=== PATIENT | female | born 1990 | race American Indian/Alaskan Native ===

== ENCOUNTER 2016-12-13 13:57 | Emergency (ER) | payer MEDICAID, OTHER ==
[2016-12-13 14:34] VITALS: BP 128/76
--- NOTE | 2016-12-13 16:32 | Emergency Department Report ---
ED General Adult HPI - General Chief complaint: Eye Problems Stated complaint: EYE RED/IRRIATION Time Seen by Provider: 12/13/16 15:51 Source: patient Mode of arrival: Ambulatory Limitations: No Limitations - History of Present Illness Initial comments: Mother comes into the ER today with complaints of left eye pain for the past 2 days. Patient states that her child poked her in her left eye 2 days ago and since then it has become more red and more painful. Patient states that this morning upon waking up she noticed that she had some discharge coming out of her left eye as well. Patient denies any visual changes. Patient states that it feels like something is in her eye every time she blinks. Patient further notes that she has been having some mild sinus congestion for the past few days as well. Patient denies any fever, body aches, chills. - Related Data Previous Rx's Medication Instructions Recorded Last Taken Type HYDROcodone/APAP 10-325 [[place] 1 each PO Q8HR PRN #15 tablet 07/16/13 Unknown Rx 10-325 mg TAB] Sulfamethoxazole/Trimethoprim 1 each PO BID 3 Days 07/16/13 Unknown Rx [Bactrim Ds] metroNIDAZOLE [Flagyl] 500 mg PO BID #20 tablet 05/24/14 Unknown Rx Doxycycline [Vibramycin CAP] 100 mg PO Q12HR #20 capsule 07/28/15 Unknown Rx HYDROcodone/APAP 5-325 [[place] 1 each PO Q6HR PRN #10 tablet 07/28/15 Unknown Rx 5-325 mg TAB] Ibuprofen [Motrin 800 MG tab] 800 mg PO TID PRN #45 tablet 07/28/15 Unknown Rx metroNIDAZOLE [Flagyl] 500 mg PO Q12HR #20 tab 07/28/15 Unknown Rx Amoxicillin 500 mg PO TID #30 capsule 12/13/16 Unknown Rx Polymyxin B Sulf/Trimethoprim 2 drop OP QID #10 ml 12/13/16 Unknown Rx [Polytrim Eye Drops 37081uwoly/0.1%] Allergies Allergy/AdvReac Type Severity Reaction Status Date / Time No Known Allergies Allergy Verified 07/15/13 22:51 ED Review of Systems ROS: Stated complaint: EYE RED/IRRIATION Other details as noted in HPI Constitutional: denies: chills, fever Eyes: eye pain (left eye), eye discharge. denies: vision change ENT: congestion. denies: ear pain, throat pain Respiratory: denies: cough, shortness of breath, wheezing Cardiovascular: denies: chest pain, palpitations Endocrine: no symptoms reported Gastrointestinal: denies: abdominal pain, nausea, diarrhea Genitourinary: denies: urgency, dysuria, discharge Musculoskeletal: denies: back pain, joint swelling, arthralgia Skin: denies: rash, lesions Neurological: denies: headache, weakness, paresthesias Psychiatric: denies: anxiety, depression Hematological/Lymphatic: denies: easy bleeding, easy bruising ED Past Medical Hx - Past Medical History Previous Medical History?: No Additional medical history: chronic back pain - Surgical History Past Surgical History?: No - Social History Smoking Status: Never Smoker Substance Use Type: None - Medications Home Medications: Home Medications Medication Instructions Recorded Confirmed Last Taken Type HYDROcodone/APAP 10-325 [[place] 1 each PO Q8HR PRN #15 tablet 07/16/13 Unknown Rx 10-325 mg TAB] Sulfamethoxazole/Trimethoprim 1 each PO BID 3 Days 07/16/13 Unknown Rx [Bactrim Ds] metroNIDAZOLE [Flagyl] 500 mg PO BID #20 tablet 05/24/14 Unknown Rx Doxycycline [Vibramycin CAP] 100 mg PO Q12HR #20 capsule 07/28/15 Unknown Rx HYDROcodone/APAP 5-325 [[place] 1 each PO Q6HR PRN #10 tablet 07/28/15 Unknown Rx 5-325 mg TAB] Ibuprofen [Motrin 800 MG tab] 800 mg PO TID PRN #45 tablet 07/28/15 Unknown Rx metroNIDAZOLE [Flagyl] 500 mg PO Q12HR #20 tab 07/28/15 Unknown Rx Amoxicillin 500 mg PO TID #30 capsule 12/13/16 Unknown Rx Polymyxin B Sulf/Trimethoprim 2 drop OP QID #10 ml 12/13/16 Unknown Rx [Polytrim Eye Drops [id number]/0.1%] ED Physical Exam - General Limitations: No Limitations General appearance: alert, in no apparent distress - Head Head exam: Present: atraumatic, normocephalic - Eye Eye exam: Present: normal appearance, PERRL, EOMI, conjunctival injection (left eye), other (visible corneal abrasion to left lower iris region visible with ophthalmoscope. Diffuse scleral erythematous with purulent drainage noted on exam.). Absent: periorbital swelling, periorbital tenderness Pupils: Present: normal accommodation - ENT ENT exam: Present: mucous membranes moist, TM's normal bilaterally, normal external ear exam, other (bilateral nasal mucosa redness and turbinate swelling) - Neck Neck exam: Present: normal inspection, full ROM. Absent: tenderness, lymphadenopathy - Respiratory Respiratory exam: Present: normal lung sounds bilaterally. Absent: respiratory distress - Cardiovascular Cardiovascular Exam: Present: regular rate, normal rhythm. Absent: systolic murmur, diastolic murmur, rubs, gallop - GI/Abdominal GI/Abdominal exam: Present: soft, normal bowel sounds - Extremities Exam Extremities exam: Present: normal inspection - Back Exam Back exam: Present: normal inspection - Neurological Exam Neurological exam: Present: alert, oriented X3 - Psychiatric Psychiatric exam: Present: normal affect, normal mood - Skin Skin exam: Present: warm, dry, intact, normal color. Absent: rash ED Course Vital Signs 12/13/16 14:28 Temperature 98.2 F Pulse Rate 83 Respiratory 20 Rate Blood Pressure 128/76 O2 Sat by Pulse 100 Oximetry ED Medical Decision Making - Medical Decision Making Patient is nontoxic and hemodynamically stable. It appears the patient suffered a corneal abrasion from her intense finger 2 days ago and it appears to be getting infected at this time. I will start patient on medicine appropriately and give patient referral to eye doctor as needed. Patient is in agreement with treatment plan patient is stable for discharge. Critical care attestation.: If time is entered above; I have spent that time in minutes in the direct care of this critically ill patient, excluding procedure time. ED Disposition Clinical Impression: Corneal abrasion, left, Conjunctivitis, Sinusitis Disposition: TO HOME OR SELFCARE Is pt being admited?: No Does the pt Need Aspirin: No Condition: Good Instructions: Conjunctivitis (ED), Corneal Abrasion (ED), Sinusitis (ED) Prescriptions: Amoxicillin 500 mg PO TID #30 capsule Polymyxin B Sulf/Trimethoprim [Polytrim Eye Drops 51067mbjaw/0.1%] 2 drop OP QID #10 ml Referrals: PRIMARY CARE, [Primary Care Provider] - 3-5 Days [facility] [Provider Group] - as needed Time of Disposition: 16:33
== END 2016-12-13 16:44 | disposition home or self-care (01) ==
LOC: ED 13:57
DX: S05.02XA Injury of conjunctiva and corneal abrasion without foreign body, left eye, initial encounter (principal); H10.9 Unspecified conjunctivitis; J32.9 Chronic sinusitis, unspecified; G89.29 Other chronic pain; X58.XXXA Exposure to other specified factors, initial encounter; Y93.89 Activity, other specified; Y99.9 Unspecified external cause status; Y92.89 Other specified places as the place of occurrence of the external cause
CPT/HCPCS: 99282

== ENCOUNTER 2021-04-17 22:18 | Emergency (ER) | payer MEDICAID ==
[2021-04-17] MEDS ORDERED: IBUPROFEN 600 MG TAB PO ONE (23:17)
--- NOTE | 2021-04-17 23:22 | Emergency Department Report ---
ED Eye Problem HPI - General Chief complaint: Eye Problems Stated complaint: RIGHT EYE INJURY Source: patient Mode of arrival: Ambulatory Limitations: No Limitations - History of Present Illness Initial comments: Patient is a 31-year-old -[place] female with no past medical history presents to the ED with complaint of acute onset persistent right eye pain after she scratched her right eye accidentally 2 days ago. Patient states that the pain is mainly when she blinks her right eye and states that in the last 24 hours, she noticed that the right eye was extremely red with some mild discharge. Patient states that she is up-to-date with all her vaccinations including tetanus. Patient denies vision changes or vision loss, fever, chills, nausea and vomiting, headache, chest pain or shortness of breath, nasal and sinus congestion. MD chief complaint: eye pain (right eye pain; erythematous right conjunctiva s/p injury), eye redness, eye injury (right), foreign body (sensation), other (accidentally scratched right eye) -: Sudden, days(s) (2) Onset Description: sudden Location: right eye Place: home If Injury: direct trauma (scratched right eye) Eye Symptoms: burning, redness, pain, foreign body sensation Severity: moderate Severity scale (0 -10): 3 If Pain, Quality: burning, aching Consistency: constant Context: trauma, injury (scratched right eye accidentally) Associated Symptoms: none Treatments Prior to Arrival: none - Related Data Patient Tetanus UTD: Yes Previous Rx's Medication Instructions Recorded Last Taken Type HYDROcodone/APAP 10-325 [[place] 1 each PO Q8HR PRN #15 tablet 07/16/13 Unknown Rx 10-325 mg TAB] Sulfamethoxazole/Trimethoprim 1 each PO BID 3 Days tablet 07/16/13 Unknown Rx [Bactrim Ds] metroNIDAZOLE [Flagyl] 500 mg PO BID #20 tablet 05/24/14 Unknown Rx DOXYCYCLINE Hyclate [Vibramycin 100 mg PO Q12HR #20 capsule 07/28/15 Unknown Rx CAP] HYDROcodone/APAP 5-325 [[place] 1 each PO Q6HR PRN #10 tablet 07/28/15 Unknown Rx 5-325 mg TAB] Ibuprofen [Motrin 800 MG tab] 800 mg PO TID PRN #45 tablet 07/28/15 Unknown Rx metroNIDAZOLE [Flagyl] 500 mg PO Q12HR #20 tab 07/28/15 Unknown Rx Amoxicillin 500 mg PO TID #30 capsule 12/13/16 Unknown Rx Polymyxin B Sulf/Trimethoprim 2 drop OP QID #10 ml 12/13/16 Unknown Rx [Polytrim Eye Drops 95003voxle/0.1%] Ibuprofen [Motrin] 600 mg PO Q8H PRN #30 tablet 04/17/21 Unknown Rx Tobramycin 0.3% [Tobrex] 1 drop OP Q6HR #5 ml 04/17/21 Unknown Rx Allergies Allergy/AdvReac Type Severity Reaction Status Date / Time No Known Allergies Allergy Verified 07/15/13 22:51 ED Review of Systems ROS: Stated complaint: RIGHT EYE INJURY Other details as noted in HPI Constitutional: denies: chills, fever Eyes: eye pain (right eye pain with erythematous right conjunctiva), eye discharge (right). denies: vision change ENT: denies: ear pain, throat pain, dental pain, congestion Respiratory: denies: cough, shortness of breath, SOB with exertion, SOB at rest, wheezing Cardiovascular: denies: chest pain, palpitations Endocrine: no symptoms reported Gastrointestinal: denies: abdominal pain, nausea, diarrhea Genitourinary: denies: urgency, dysuria, discharge Musculoskeletal: denies: back pain, joint swelling, arthralgia Skin: denies: rash, lesions Neurological: denies: headache, weakness, paresthesias Psychiatric: denies: anxiety, depression Hematological/Lymphatic: denies: easy bleeding, easy bruising ED Past Medical Hx - Past Medical History Previous Medical History?: Yes Additional medical history: chronic back pain - Surgical History Past Surgical History?: No - Social History Smoking Status: Never Smoker Substance Use Type: None - Medications Home Medications: Home Medications Medication Instructions Recorded Confirmed Last Taken Type HYDROcodone/APAP 10-325 [[place] 1 each PO Q8HR PRN #15 tablet 07/16/13 Unknown Rx 10-325 mg TAB] Sulfamethoxazole/Trimethoprim 1 each PO BID 3 Days tablet 07/16/13 Unknown Rx [Bactrim Ds] metroNIDAZOLE [Flagyl] 500 mg PO BID #20 tablet 05/24/14 Unknown Rx DOXYCYCLINE Hyclate [Vibramycin 100 mg PO Q12HR #20 capsule 07/28/15 Unknown Rx CAP] HYDROcodone/APAP 5-325 [[place] 1 each PO Q6HR PRN #10 tablet 07/28/15 Unknown Rx 5-325 mg TAB] Ibuprofen [Motrin 800 MG tab] 800 mg PO TID PRN #45 tablet 07/28/15 Unknown Rx metroNIDAZOLE [Flagyl] 500 mg PO Q12HR #20 tab 07/28/15 Unknown Rx Amoxicillin 500 mg PO TID #30 capsule 12/13/16 Unknown Rx Polymyxin B Sulf/Trimethoprim 2 drop OP QID #10 ml 12/13/16 Unknown Rx [Polytrim Eye Drops 72624mpavc/0.1%] Ibuprofen [Motrin] 600 mg PO Q8H PRN #30 tablet 04/17/21 Unknown Rx Tobramycin 0.3% [Tobrex] 1 drop OP Q6HR #5 ml 04/17/21 Unknown Rx ED Physical Exam - General Limitations: No Limitations General appearance: alert, in no apparent distress - Head Head exam: Present: atraumatic, normocephalic, normal inspection - Eye Eye exam: Present: normal appearance, PERRL, EOMI, other (erythematous right conjunctiva with mild yellowish discharge) Pupils: Present: normal accommodation - ENT ENT exam: Present: normal exam, normal orophraynx, mucous membranes moist, TM's normal bilaterally, normal external ear exam - Neck Neck exam: Present: normal inspection, full ROM. Absent: tenderness - Respiratory Respiratory exam: Present: normal lung sounds bilaterally. Absent: respiratory distress, wheezes, rhonchi, stridor, chest wall tenderness, accessory muscle use, decreased breath sounds - Cardiovascular Cardiovascular Exam: Present: regular rate, normal rhythm, normal heart sounds. Absent: systolic murmur, diastolic murmur, rubs, gallop - GI/Abdominal GI/Abdominal exam: Present: soft, normal bowel sounds. Absent: tenderness, guarding, rebound, hyperactive bowel sounds, hypoactive bowel sounds, organomegaly - Extremities Exam Extremities exam: Present: normal inspection, full ROM, normal capillary refill - Back Exam Back exam: Present: normal inspection, full ROM. Absent: tenderness, CVA tenderness (R), CVA tenderness (L), muscle spasm, paraspinal tenderness, vertebral tenderness, rash noted - Neurological Exam Neurological exam: Present: alert, oriented X3, CN II-XII intact, normal gait, reflexes normal - Psychiatric Psychiatric exam: Present: normal affect, normal mood - Skin Skin exam: Present: warm, dry, intact, normal color. Absent: rash ED Course Vital Signs 04/17/21 22:20 Temperature 98.0 F Pulse Rate 84 Respiratory 18 Rate Blood Pressure 99/70 O2 Sat by Pulse 97 Oximetry ED Medical Decision Making - Medical Decision Making This is a 31-year-old -[place] female with no past medical history presents to the ED with complaint of acute onset persistent right eye pain after she scratched her right eye accidentally 2 days ago. Patient states that the pain is mainly when she blinks her right eye and states that in the last 24 hours, she noticed that the right eye was extremely red with some mild discharge. Patient states that she is up-to-date with all her vaccinations including tetanus. In the ED, patient is alert and oriented x3 and is not in any distress. Patient was discharged home on antibiotic eyedrops and pain medications by mouth. Patient was referred to the hand embroiderer Dr. Thee Moulton for follow-up in 3 to 5 days for reevaluation. Patient was advised return to the ED immediately if symptoms get worse. - Differential Diagnosis Corneal abrasion; conjunctival abrasion; right eye injury; conjunctivitis Critical care attestation.: If time is entered above; I have spent that time in minutes in the direct care of this critically ill patient, excluding procedure time. ED Disposition Clinical Impression: Right eye injury Qualifiers: Encounter type: initial encounter Qualified Code(s): S05.91XA - Unspecified injury of right eye and orbit, initial encounter Abrasion of right conjunctiva with infection Qualifiers: Encounter type: initial encounter Qualified Code(s): S05.01XA - Injury of conjunctiva and corneal abrasion without foreign body, right eye, initial encounter; H44.001 - Unspecified purulent endophthalmitis, right eye Disposition: HOME / SELF CARE / HOMELESS Is pt being admited?: No Does the pt Need Aspirin: No Condition: Stable Instructions: Corneal Abrasion, [id number] Additional Instructions: Apply the medication to the affected eye as advised, drink plenty of fluids, take pain medication as needed, follow-up with the hand embroiderer Dr. Marilyn Pride for further evaluation and 3 to 5 days. Return to the ED immediately if symptoms get worse. Prescriptions: Ibuprofen [Motrin] 600 mg PO Q8H PRN #30 tablet PRN Reason: Pain Tobramycin 0.3% [Tobrex] 1 drop OP Q6HR #5 ml Referrals: MARILYN PRIDE MD [Staff Physician] - 3-5 Days Time of Disposition: 23:23 Print Language: BULGARIAN
[2021-04-17 23:50] VITALS: BP 121/63
== END 2021-04-17 23:54 | disposition home or self-care (01) ==
LOC: ED 22:18
DX: S05.01XA Injury of conjunctiva and corneal abrasion without foreign body, right eye, initial encounter (principal); S05.91XA Unspecified injury of right eye and orbit, initial encounter; G89.29 Other chronic pain; X58.XXXA Exposure to other specified factors, initial encounter; Y93.89 Activity, other specified; Y92.89 Other specified places as the place of occurrence of the external cause; Y99.8 Other external cause status
CPT/HCPCS: 99282

== ENCOUNTER 2021-04-20 13:15 | Emergency (ER) | payer MEDICAID ==
[2021-04-20 13:34] VITALS: BP 129/73
[2021-04-20] MEDS ORDERED: FLUORESCEIN 1 MG STRIP OP ONE (13:36)
[2021-04-20] MEDS ORDERED: TETRACAINE 0.5% OPHTH SOLN 4ML OD ONE (13:36)
--- NOTE | 2021-04-20 14:16 | Emergency Department Report ---
ED Eye Problem HPI - General Chief complaint: Eye Problems Stated complaint: EYE PROBLEMS Time Seen by Provider: 04/20/21 13:27 Source: patient Mode of arrival: Ambulatory Limitations: No Limitations - History of Present Illness Initial comments: Patient is a 31-year-old female presents emergency room complaints of bilateral eye irritation. She states initially began in the right eye 5 days ago after rubbing her eye. She was seen in the emergency department 3 days ago and prescribed tobramycin. She states now it has spread to the left eye. She has associated drainage. She states that she has a foreign body sensation in the right eye but denies getting anything into the eye that she is aware of. She denies any contact lens use. She denies any vision changes. No allergies to medications. - Related Data Previous Rx's Medication Instructions Recorded Last Taken Type HYDROcodone/APAP 10-325 [[place] 1 each PO Q8HR PRN #15 tablet 07/16/13 Unknown Rx 10-325 mg TAB] Sulfamethoxazole/Trimethoprim 1 each PO BID 3 Days tablet 07/16/13 Unknown Rx [Bactrim Ds] metroNIDAZOLE [Flagyl] 500 mg PO BID #20 tablet 05/24/14 Unknown Rx DOXYCYCLINE Hyclate [Vibramycin 100 mg PO Q12HR #20 capsule 07/28/15 Unknown Rx CAP] HYDROcodone/APAP 5-325 [[place] 1 each PO Q6HR PRN #10 tablet 07/28/15 Unknown Rx 5-325 mg TAB] Ibuprofen [Motrin 800 MG tab] 800 mg PO TID PRN #45 tablet 07/28/15 Unknown Rx metroNIDAZOLE [Flagyl] 500 mg PO Q12HR #20 tab 07/28/15 Unknown Rx Amoxicillin 500 mg PO TID #30 capsule 12/13/16 Unknown Rx Polymyxin B Sulf/Trimethoprim 2 drop OP QID #10 ml 12/13/16 Unknown Rx [Polytrim Eye Drops 13098ythnc/0.1%] Ibuprofen [Motrin] 600 mg PO Q8H PRN #30 tablet 04/17/21 Unknown Rx Tobramycin 0.3% [Tobrex] 1 drop OP Q6HR #5 ml 04/17/21 Unknown Rx Allergies Allergy/AdvReac Type Severity Reaction Status Date / Time No Known Allergies Allergy Verified 07/15/13 22:51 ED Review of Systems ROS: Stated complaint: EYE PROBLEMS Other details as noted in HPI Comment: All other systems reviewed and negative ED Past Medical Hx - Past Medical History Additional medical history: chronic back pain - Social History Smoking Status: Never Smoker Substance Use Type: None - Medications Home Medications: Home Medications Medication Instructions Recorded Confirmed Last Taken Type HYDROcodone/APAP 10-325 [[place] 1 each PO Q8HR PRN #15 tablet 07/16/13 Unknown Rx 10-325 mg TAB] Sulfamethoxazole/Trimethoprim 1 each PO BID 3 Days tablet 07/16/13 Unknown Rx [Bactrim Ds] metroNIDAZOLE [Flagyl] 500 mg PO BID #20 tablet 05/24/14 Unknown Rx DOXYCYCLINE Hyclate [Vibramycin 100 mg PO Q12HR #20 capsule 07/28/15 Unknown Rx CAP] HYDROcodone/APAP 5-325 [[place] 1 each PO Q6HR PRN #10 tablet 07/28/15 Unknown Rx 5-325 mg TAB] Ibuprofen [Motrin 800 MG tab] 800 mg PO TID PRN #45 tablet 07/28/15 Unknown Rx metroNIDAZOLE [Flagyl] 500 mg PO Q12HR #20 tab 07/28/15 Unknown Rx Amoxicillin 500 mg PO TID #30 capsule 12/13/16 Unknown Rx Polymyxin B Sulf/Trimethoprim 2 drop OP QID #10 ml 12/13/16 Unknown Rx [Polytrim Eye Drops 49309jamfd/0.1%] Ibuprofen [Motrin] 600 mg PO Q8H PRN #30 tablet 04/17/21 Unknown Rx Tobramycin 0.3% [Tobrex] 1 drop OP Q6HR #5 ml 04/17/21 Unknown Rx ED Physical Exam - General Limitations: No Limitations General appearance: alert, in no apparent distress - Head Head exam: Present: atraumatic, normocephalic - Eye Eye exam: Present: PERRL, EOMI, conjunctival injection (bilaterally), other (weber lamp with fluoroscein to the right eye: no uptake, no signs of foreign body). Absent: periorbital swelling, periorbital tenderness - ENT ENT exam: Present: mucous membranes moist - Neurological Exam Neurological exam: Present: alert, oriented X3 - Psychiatric Psychiatric exam: Present: normal affect, normal mood - Skin Skin exam: Present: warm, dry, intact ED Course Vital Signs 04/20/21 13:29 Temperature 98.0 F Pulse Rate 73 Respiratory 12 Rate Blood Pressure 129/73 [Right] O2 Sat by Pulse 99 Oximetry ED Medical Decision Making - Medical Decision Making Patient is a 31-year-old female presents emergency room complaints of bilateral eye irritation. She states initially began in the right eye 5 days ago after rubbing her eye. She was seen in the emergency department 3 days ago and prescribed tobramycin. She states now it has spread to the left eye. She has associated drainage. She states that she has a foreign body sensation in the right eye but denies getting anything into the eye that she is aware of. She denies any contact lens use. She denies any vision changes. No allergies to medications. Vitals are normal. On exam patient has bilateral conjunctival injection, PERRLA, EOMI, no periorbital edema, weber lamp with fluoroscein to the right eye: no uptake, no signs of foreign body. Appears likely consistent with conjunctivitis. Given the patient has spread from the right eye to the left eye this is very consistent with conjunctivitis. Advised patient Please continue using medication you were prescribed during your last emergency room visit. Avoid rubbing the eyes. Follow-up with senior marketing engineer. Return to emergency room any new or worsening symptoms. Critical care attestation.: If time is entered above; I have spent that time in minutes in the direct care of this critically ill patient, excluding procedure time. ED Disposition Clinical Impression: Conjunctivitis Qualifiers: Conjunctivitis type: acute Acute conjunctivitis type: unspecified Laterality: bilateral Qualified Code(s): H10.33 - Unspecified acute conjunctivitis, bilateral Disposition: 01 HOME / SELF CARE / HOMELESS Is pt being admited?: No Does the pt Need Aspirin: No Condition: Stable Instructions: Viral Conjunctivitis, Adult, Bacterial Conjunctivitis, Adult Additional Instructions: Please continue using medication you were prescribed during your last emergency room visit. Avoid rubbing the eyes. Follow-up with senior marketing engineer. Return to emergency room any new or worsening symptoms. Referrals: CAMMY FELDER MD [Staff Physician] - 2-3 Days [facility] [Provider Group] - 2-3 Days Forms: Work/School Release Form(ED) Time of Disposition: 14:15 Print Language: [place]
== END 2021-04-20 14:34 | disposition home or self-care (01) ==
LOC: ED 13:15
DX: H10.9 Unspecified conjunctivitis (principal); M54.9 Dorsalgia, unspecified
CPT/HCPCS: 99282

== ENCOUNTER 2021-04-26 13:23 | Emergency (ER) | payer MEDICAID ==
[2021-04-26 13:39] VITALS: BP 129/82
[2021-04-26] MEDS ORDERED: BALANCED SALT IRRIG (BSS) OPHTH SOLN 15 ML OU ONE (14:14)
[2021-04-26] MEDS ORDERED: TETRACAINE 0.5% OPHTH SOLN 4ML OS ONE (14:14)
[2021-04-26] MEDS ORDERED: FLUORESCEIN 1 MG STRIP OP ONE (14:16)
--- NOTE | 2021-04-26 14:46 | Emergency Department Report ---
ED Eye Problem HPI - General Chief complaint: Eye Problems Stated complaint: CONJUNCTIVITIS Time Seen by Provider: 04/26/21 14:14 Source: patient Mode of arrival: Ambulatory Limitations: No Limitations - History of Present Illness Initial comments: The patient was evaluated in the emergency department for symptoms described in the history of present illness. He/she was evaluated in the context of the global COVID-19 pandemic, which necessitated consideration that the patient might be at risk for infection with the virus that causes COVID-19. Instit utional protocols and algorithms that pertain to the evaluation of patients at risk for COVID-19 are in a state of rapid change based on information released by regulatory bodies including the CDC and federal and state organizations. These policies and algorithms were followed during the patient's care in the emergency department. Please note that these policies, procedures and recommendations changed on a rapid basis. 31-year-old -[place] female presents to the emergency room complaining of right eye blurred vision pain redness that started on 04/17/2021. Patient was placed on tobramycin and came back on 04/20/2021 and was diagnosed with conjunctivitis and placed on tobramycin again. Patient still having difficulty with the right eye. MD chief complaint: eye pain, eye redness - Related Data Previous Rx's Medication Instructions Recorded Last Taken Type HYDROcodone/APAP 10-325 [[place]oy 1 each PO Q8HR PRN #15 tablet 07/16/13 Unknown Rx 10-325 mg TAB] Sulfamethoxazole/Trimethoprim 1 each PO BID 3 Days tablet 07/16/13 Unknown Rx [Bactrim Ds] metroNIDAZOLE [Flagyl] 500 mg PO BID #20 tablet 05/24/14 Unknown Rx DOXYCYCLINE Hyclate [Vibramycin 100 mg PO Q12HR #20 capsule 07/28/15 Unknown Rx CAP] HYDROcodone/APAP 5-325 [[place]oy 1 each PO Q6HR PRN #10 tablet 07/28/15 Unknown Rx 5-325 mg TAB] Ibuprofen [Motrin 800 MG tab] 800 mg PO TID PRN #45 tablet 07/28/15 Unknown Rx metroNIDAZOLE [Flagyl] 500 mg PO Q12HR #20 tab 07/28/15 Unknown Rx Amoxicillin 500 mg PO TID #30 capsule 12/13/16 Unknown Rx Polymyxin B Sulf/Trimethoprim 2 drop OP QID #10 ml 12/13/16 Unknown Rx [Polytrim Eye Drops [id number]/0.1%] Ibuprofen [Motrin] 600 mg PO Q8H PRN #30 tablet 04/17/21 Unknown Rx Tobramycin 0.3% [Tobrex] 1 drop OP Q6HR #5 ml 04/17/21 Unknown Rx Erythromycin [Erythromycin Ophth 1 strip OD QID 10 Days #1 tube 04/26/21 Unknown Rx Oint] Allergies Allergy/AdvReac Type Severity Reaction Status Date / Time No Known Allergies Allergy Verified 07/15/13 22:51 ED Review of Systems ROS: Stated complaint: CONJUNCTIVITIS Other details as noted in HPI ED Past Medical Hx - Past Medical History Additional medical history: chronic back pain - Social History Smoking Status: Never Smoker Substance Use Type: None - Medications Home Medications: Home Medications Medication Instructions Recorded Confirmed Last Taken Type HYDROcodone/APAP 10-325 [P[place]oy 1 each PO Q8HR PRN #15 tablet 07/16/13 Unknown Rx 10-325 mg TAB] Sulfamethoxazole/Trimethoprim 1 each PO BID 3 Days tablet 07/16/13 Unknown Rx [Bactrim Ds] metroNIDAZOLE [Flagyl] 500 mg PO BID #20 tablet 05/24/14 Unknown Rx DOXYCYCLINE Hyclate [Vibramycin 100 mg PO Q12HR #20 capsule 07/28/15 Unknown Rx CAP] HYDROcodone/APAP 5-325 [P[place]oy 1 each PO Q6HR PRN #10 tablet 07/28/15 Unknown Rx 5-325 mg TAB] Ibuprofen [Motrin 800 MG tab] 800 mg PO TID PRN #45 tablet 07/28/15 Unknown Rx metroNIDAZOLE [Flagyl] 500 mg PO Q12HR #20 tab 07/28/15 Unknown Rx Amoxicillin 500 mg PO TID #30 capsule 12/13/16 Unknown Rx Polymyxin B Sulf/Trimethoprim 2 drop OP QID #10 ml 12/13/16 Unknown Rx [Polytrim Eye Drops [id number]/0.1%] Ibuprofen [Motrin] 600 mg PO Q8H PRN #30 tablet 04/17/21 Unknown Rx Tobramycin 0.3% [Tobrex] 1 drop OP Q6HR #5 ml 04/17/21 Unknown Rx Erythromycin [Erythromycin Ophth 1 strip OD QID 10 Days #1 tube 04/26/21 Unknown Rx Oint] ED Physical Exam - General Limitations: No Limitations ED Course Vital Signs 04/26/21 13:38 Temperature 98.5 F Pulse Rate 68 Respiratory 18 Rate Blood Pressure 129/82 [Right] O2 Sat by Pulse 98 Oximetry Critical care attestation.: If time is entered above; I have spent that time in minutes in the direct care of this critically ill patient, excluding procedure time. ED Disposition Clinical Impression: Corneal abrasion, right Disposition: HOME / SELF CARE / HOMELESS Is pt being admited?: No Does the pt Need Aspirin: No Condition: Stable Instructions: Corneal Abrasion, [id number] Prescriptions: Erythromycin [Erythromycin Ophth Oint] 1 strip OD QID 10 Days #1 tube Referrals: [facility] [Other] - 3-5 Days Forms: Work/School Release Form(ED) Time of Disposition: 14:53
== END 2021-04-26 15:06 | disposition home or self-care (01) ==
LOC: ED 13:23
DX: S05.01XA Injury of conjunctiva and corneal abrasion without foreign body, right eye, initial encounter (principal); G89.29 Other chronic pain; X58.XXXA Exposure to other specified factors, initial encounter; Y93.9 Activity, unspecified; Y92.89 Other specified places as the place of occurrence of the external cause; Y99.8 Other external cause status
CPT/HCPCS: 99282